=== PATIENT | female | born 1990 | race American Indian/Alaskan Native ===

== ENCOUNTER 2017-07-23 10:51 | Inpatient (IN) | payer MEDICAID ==
[2017-07-23] MEDS ORDERED: Lactated Ringers 1,000 ML IV ONE (11:15)
[2017-07-23] MEDS ORDERED: Citric Acid/Sodium Citrate Solution 30 ML Cup PO ONE (12:00)
[2017-07-23] MEDS ORDERED: Sodium Chloride 0.9% 10 ML Syringe FLUSH PRN (12:00)
[2017-07-23] MEDS ORDERED: Lactated Ringers 1,000 ML IV SCH ×2 (12:00)
[2017-07-23] MEDS ORDERED: ceFAZolin 2 GM in Premix Bag 1 BAG IV ONE (12:00)
[2017-07-23] MEDS ORDERED: Tranexamic Acid 1,000 MG in Sodium Chloride 0.9% 100 ML IV PRN ×2 (12:00→13:38)
[2017-07-23] MEDS ORDERED: Oxytocin/Normal Saline 60 UNIT/1,000 ML BAG ONE (12:13)
[2017-07-23] MEDS ORDERED: Carboprost Tromethamine 250 MCG/1 ML Amp IM ONE (13:38)
[2017-07-23] MEDS ORDERED: Methylergonovine 0.2 MG/1 ML Amp IM PRN (13:38)
[2017-07-23] MEDS ORDERED: Acetaminophen/oxyCODONE 325-5 MG Tab PO PRN (13:38)
[2017-07-23] MEDS ORDERED: Ondansetron 4 MG/2 ML SDV IV PRN (13:38)
[2017-07-23] MEDS ORDERED: Measles, Mumps & Rubella Vaccine 0.5 ML SDV SUBCUT ONE (13:38)
[2017-07-23] MEDS ORDERED: diphenhydrAMINE 50 MG/ML SDV IVPUSH PRN (13:38)
[2017-07-23] MEDS ORDERED: ePHEDrine 50 MG/ML SDV IVPUSH PRN (13:38)
[2017-07-23] MEDS ORDERED: Acetaminophen 325 MG Tab PO PRN (13:38)
[2017-07-23] MEDS ORDERED: Misoprostol 400 MCG (4 X 100 MCG TAB) RECTAL PRN (13:38)
[2017-07-23] MEDS ORDERED: Naloxone 2 MG/2 ML Syringe IVPUSH PRN (13:38)
[2017-07-23] MEDS ORDERED: Oxytocin/Normal Saline 30 UNIT/500 ML BAG IV SCH (14:15)
--- NOTE | 2017-07-23 14:50 | OR ---
DATE: 07/23/2017 PROCEDURE PERFORMED: Repeat low-transverse section with single-layer closure. PREOPERATIVE DIAGNOSES: 1. 39 and 4/7 weeks' intrauterine . 2. 3, para 2-0-0-2. 3. Active labor. 4. Blood type A positive, rubella nonimmune, group B strep positive. 5. History of macrosomic infant. 6. Late care. 7. Thrombocytopenia. 8. Marijuana abuse. 9. Abnormal Pap smear ASCUS with positive HPV. 10.History of x2. POSTOPERATIVE DIAGNOSES: 1. 39 and 4/7 weeks' intrauterine . 2. 3, para 3-0-0-3. 3. Active labor. 4. Blood type A positive, rubella nonimmune, group B strep positive. 5. History of macrosomic . 6. Late care. 7. Thrombocytopenia. 8. Marijuana abuse. 9. Abnormal Pap smear ASCUS with positive HPV. 10.History of x2. 11.Delivery of viable male infant. BRIEF HISTORY: A 26-year-old with the above-listed diagnoses presented to the clinic today with contractions that had been started since last night and were continuing throughout the day. The cervix was examined at the clinic and then rechecked here at the hospital. She was making cervical change as well as having a little bit of bloody show. Decision was made to proceed with elective repeat section due to active labor. CONSENT: Discussed with the patient indications risks, benefits, and alternatives to repeat section including, but not limited to risk of infection, plan for preoperative antibiotics, risk for bleeding to the point of requiring a blood transfusion and its inherent risks. Risk of injury to any internal organs and adjacent structures including, but not limited to, bladder, uterus, fallopian tubes, intestines, large blood vessels, nerves, veins, any adjacent structures, and even potential injury to the baby. Potential for complications, requiring transfer of mother and/or baby to a higher level of care and even remote risk of , she agreed to proceed. Appropriate consent form signed and can be found in the chart. SURGEON: Yolanda Vasquez MD WELL POINT PUMPING SUPERVISOR: Izaiah Page MD SECOND WELL POINT PUMPING SUPERVISOR: Berta Groves MS-III PROCEDURE IN DETAIL: The patient was taken to the operating room and spinal anesthesia obtained. She was laid in dorsal supine position with leftward tilt and Chaudhry indwelling catheter placed. Prepped and draped in normal sterile fashion. Pfannenstiel skin incision made with scalpel and carried down to the underlying fascia with cautery. Fascia incised in the midline and continued dissection with Mattson scissors. Superior fascial edge grasped, tented up, and rectus muscles dissected off bluntly with cautery. Inferior fascial edge was then tented up and rectus muscles dissected off bluntly with cautery. The peritoneal cavity opened with blunt finger dissection and traction. Uterus inspected and Roque retractor placed. Then, bladder flap created with Metzenbaum scissors and smooth pickup in the usual fashion. Low-uterine segment transverse incision made with scalpel and carried down until amniotic fluid sac was seen and not ruptured. Hysterotomy site created with blunt finger traction. Amniotic fluid sac then ruptured with Allis forceps and had copious amounts of clear fluid. Attempted to deliver the baby up through the hysterotomy site and this proved to be quite difficult, so Kiwi vacuum was called for assist and we were able to get the baby delivered. 's mouth and nose were bulb suctioned, baby dried, stimulated, and the three-vessel umbilical cord doubly clamped and cut. Baby taken to the warmer for further evaluation. Placenta delivered by cord traction and concomitant uterine massage and intact. Uterine cavity cleared of all clots and debris. Hysterotomy site closed with a running lock stitch of 0 Vicryl in the usual fashion and was hemostatic. Roque removed and pericolic gutters cleared of all clots and debris. Uterus was inspected and verified. Absence of tube and ovary on the right, tube on the left ovary was not seen. No obvious endometriosis seeding of the peritoneum. Hysterotomy site reinspected and was hemostatic. Peritoneal layer closed with a running stitch of 0 Vicryl. This layer was then irrigated and fascia closed with 0 looped PDS running stitch in the usual fashion. Subcutaneous tissues irrigated, cleared of any clots and debris. Subcutaneous bleeders controlled with cautery and skin closed with carol. The patient tolerated the procedure well, and she will be in the PACU until she can return down to the OB floor. FINDINGS: Viable male infant, weighing 8 pounds 4 ounces, 3735 g, score of 8 and 9, length 19 inches, head 14 inches, chest 13 and 3/4 inches. Based on exam, guessing she is actually closer to 37 to 38 weeks gestational age. COMPLICATIONS: None. ESTIMATED BLOOD LOSS: 650 mL. IV FLUIDS: Crystalloids. URINE OUTPUT: Yellow clear. See Anesthesia notes for exact amounts. [facility] /[id number] MTDD
[2017-07-23] MEDS ORDERED: fentaNYL 100 MCG/2 ML SDV IV ONE (15:44)
[2017-07-23] MEDS ORDERED: Ondansetron 4 MG/2 ML SDV IV ONE (15:44)
[2017-07-23] MEDS ORDERED: Bupivacaine 0.75%/D5W 2 ML Amp ONE (15:44)
[2017-07-23] MEDS ORDERED: Ketorolac 30 MG/ML SDV IVPUSH ONE (15:44)
[2017-07-23] MEDS ORDERED: Dexamethasone 4 MG/ML SDV IV ONE (15:44)
[2017-07-23] MEDS ORDERED: ePHEDrine 50 MG/ML SDV IV ONE (15:44)
[2017-07-23] MEDS ORDERED: Morphine PF 1 MG/ML Amp ONE (15:44)
[2017-07-23] MEDS: Lactated Ringers 1,000 ML IV SCH (16:51)
[2017-07-23] MEDS: Simethicone 80 MG Tab.Chew PO SCH (16:59)
[2017-07-23] MEDS: Docusate Sodium 100 MG Cap PO PRN (16:59)
[2017-07-23] MEDS: Ketorolac 30 MG/ML SDV IVPUSH SCH (19:40)
[2017-07-23] MEDS ORDERED: Promethazine 25 MG/ML SDV IM ONE (20:02)
[2017-07-24] MEDS: Ketorolac 30 MG/ML SDV IVPUSH SCH ×2 (00:54→07:31)
[2017-07-24] MEDS: Lactated Ringers 1,000 ML IV SCH (00:54)
[2017-07-24] MEDS: Simethicone 80 MG Tab.Chew PO SCH ×5 (06:28→21:23)
[2017-07-24] MEDS: Prenatal Multivitamin with Calcium/Folic Acid/Iron Tab PO SCH (11:45)
[2017-07-24] MEDS: Ferrous Sulfate 325 MG Tab PO SCH (11:45)
[2017-07-24] MEDS: Docusate Sodium 100 MG Cap PO PRN ×2 (11:45→21:23)
--- NOTE | 2017-07-24 11:51 | PN ---
DATE: 07/24/2017 SUBJECTIVE: Postoperative day #1, status post elective repeat section due to presenting in labor at term. The patient reports doing well. She has been up and ambulating. Chaudhry catheter has been removed, and she has been voiding without difficulties. No chest pain or shortness of breath. Reports that she is extremely tired this morning, but denies other symptoms or complaints. Nurses are concerned about the amount of strikethrough on the dressing. It has been marked a couple of times and is more than expected. OBJECTIVE: Vital Signs: Temperature is 98.1, pulse 66, blood pressure 118/61, respiratory rate of 18, and O2 saturations 100% on room air. Heart: Regular without obvious murmur. Lungs: Clear to auscultation bilaterally. Abdomen: Soft and mildly distended. Positive bowel sounds that are hypoactive. Pelvic: Uterus is firm and below the umbilicus. Dressing with approximately 75% shadowing noted. Dressing was removed and is not juan f blood. It is actually more serosanguineous drainage. New dry dressing applied. Extremities: No edema, erythema, or tenderness noted. LABORATORY DATA: Hemoglobin is down to 11.7 from a previous 13.2 and platelets are stable at 129 from a previous 131. Urine drug screen reviewed and positive for methamphetamine and marijuana. Confirmatory testing will be pending for a few days. ASSESSMENT: 1. Postoperative day #1, status post elective repeat section. 2. Rubella nonimmune. 3. Thrombocytopenia of and . 4. History of marijuana abuse. 5. Positive drug screen for marijuana and methamphetamine, confirmation pending. 6. Atypical squamous cells of undetermined significance on Pap smear with positive human papillomavirus. PLAN: Continue normal and post cares. Anticipate discharge home on day #3. We will reassess her incision over the lunch hour, and if it looks good, we can have her get up and take a shower and then apply an Aquacel dressing and Steri-Strips if needed as 1 staple did fall out this morning. Anticipate the strikethrough will be minimal, and no interventions needed, but we will proceed cautiously. We will discuss with the patient this afternoon the positive on the methamphetamine drug screen as well, make her aware that Retail Special Event Associate consultation is part of the standard, and if she proves to be negative, then that would be a minimal intervention, and if she proves to be positive and actively using, then we will coordinate with her on followup, treatment, and plan of care. [facility] /[id number]
[2017-07-24] MEDS ORDERED: Oxytocin/Normal Saline 30 UNIT/500 ML BAG IV ONE ×2 (14:49→14:59)
[2017-07-24] MEDS: Ibuprofen 800 MG Tab PO PRN (17:15)
[2017-07-24] MEDS: Acetaminophen/oxyCODONE 325-5 MG Tab PO PRN (21:23)
[2017-07-25] MEDS: Ibuprofen 800 MG Tab PO PRN ×2 (01:22→10:51)
[2017-07-25] MEDS: Acetaminophen/oxyCODONE 325-5 MG Tab PO PRN ×2 (02:19→08:12)
[2017-07-25] MEDS: Ferrous Sulfate 325 MG Tab PO SCH (08:11)
[2017-07-25] MEDS: Prenatal Multivitamin with Calcium/Folic Acid/Iron Tab PO SCH (08:11)
[2017-07-25] MEDS: Simethicone 80 MG Tab.Chew PO SCH (08:12)
[2017-07-25 12:08] VITALS: BP 114/75
--- NOTE | 2017-08-05 00:19 | DISCH ---
ADMITTING DIAGNOSES: 1. A 39 and 4/7 weeks' intrauterine . 2. 3, para 2-0-0-2. 3. Active labor. 4. Blood type A positive, rubella nonimmune, and group B streptococcus negative. 5. History of delivery of macrosomic infants. 6. Late care. 7. Thrombocytopenia. 8. Marijuana abuse. 9. Pap smear abnormal with ASCUS and positive HPV. 10.History of x2. DISCHARGE DIAGNOSES: 1. A 39 and 4/7 weeks' intrauterine . 2. 3, para 3-0-0-3. 3. Active labor. 4. Blood type A positive, rubella nonimmune, and group B streptococcus negative. 5. History of delivery of macrosomic infants. 6. Late care. 7. Thrombocytopenia. 8. Marijuana abuse. 9. Pap smear abnormal with ASCUS and positive HPV. 10.History of x2. 11.Anemia of acute blood loss. 12.False positive methamphetamine positive on drug screen. 13.Status post repeat low transverse section. 14.Delivery of viable male infant. BRIEF HISTORY: The patient is a 26-year-old female with the above-listed diagnoses, who presented to the hospital in active labor and needed elective repeat section. See history and physical for full details. Surgery was carried out without complications. See operative report for further information. HOSPITAL COURSE: Hospital course has been good. The patient has been ambulating and tolerating regular diet. Initially had some problems with some excessive strike through of her dressing, but ultimately that was fine, and she did not have any excessive bleeding. No signs of infection. She is voiding and stooling without difficulties and meeting all of her discharge criteria. DISCHARGE CONDITION: Good. PHYSICAL EXAMINATION: Vital Signs: Temperature 97.8, pulse 68, blood pressure 114/75, respiratory rate of 18, and O2 saturations 100% on room air. Heart: Regular without murmur. Lungs: Clear to auscultation bilaterally with good chest expansion. Abdomen: Soft, nontender. Fundus is firm and below the umbilicus. Aquacel dressing is intact. Extremities: Trace edema. No erythema or tenderness noted. LABORATORY DATA: Discharge hemoglobin 11.7, platelets 129. DISPOSITION: Home with family. MEDICATIONS: 1. Iron 325 mg twice daily. 2. Colace 100 mg twice daily as needed for constipation. 3. Percocet 5/325 one to two tablets every 4 to 6 hours as needed for pain. 4. Ibuprofen 600 mg every 6 hours as needed for pain. FOLLOWUP: She will be seen in the office within the next week for staple removal and postoperative check. She will then be seen again at 6 weeks for routine exam. INSTRUCTIONS: Routine post delivery instructions were provided, and the patient will present back to the hospital if she has any concerns or complaints that arise, specifically if she has any foul-smelling drainage or discharge, increased uterine tenderness, fever, chills, concerns of wound infection, or other issues. Her questions were answered, and she was in agreement with the plan. [facility] /[id number] MTDJil
== END 2017-07-25 11:00 | disposition home or self-care (01) | DRG 765 ==
LOC: DL.OBCHECK 10:51 → DL.OB 12:08 → OBSVTOIN 13:03 → DL.OB 13:03
PROVIDERS: ADMIT Family Medicine; ATTEND Family Medicine
PROC: 10D00Z1 Extraction of Products of Conception, Low, Open Approach (ICD-10-PCS; principal; 2017-07-23)
PROC: 3E0234Z Introduction of Serum, Toxoid and Vaccine into Muscle, Percutaneous Approach (ICD-10-PCS; 2017-07-23)
DX: O34.211 Maternal care for low transverse scar from previous cesarean delivery (principal); O99.12 Other diseases of the blood and blood-forming organs and certain disorders involving the immune mechanism complicating childbirth; O99.324 Drug use complicating childbirth; N85.8 Other specified noninflammatory disorders of uterus; Z3A.39 39 weeks gestation of pregnancy; Z37.0 Single live birth; D69.6 Thrombocytopenia, unspecified; F12.10 Cannabis abuse, uncomplicated; O99.824 Streptococcus B carrier state complicating childbirth; Z28.3 Underimmunization status
CPT/HCPCS: 01961; 36415; 51702; 59409; 80305; 85025; 85027; 86850; 86900; 86901; 90707; 94010; A9270-GY; G0480; J0690; J1100; J1885; J2274; J2405; J2550; J2590; J3010; J3490; J7050; J7120

== ENCOUNTER 2019-01-21 23:43 | Emergency (ER) | payer SELFPAY ==
[2019-01-22 00:22] VITALS: BP 117/69; PULSE 126
[2019-01-22] MEDS ORDERED: Sodium Chloride 0.9% 10 ML Syringe FLUSH PRN (00:28)
--- NOTE | 2019-01-22 01:04 | EDM.PDOC ---
ED HPI GENERAL MEDICAL PROBLEM - General Chief Complaint: Skin Complaint Stated Complaint: R LEG INFECTION Time Seen by Provider: 01/22/19 01:00 Source of Information: Reports: Patient History Limitations: Reports: No Limitations - History of Present Illness INITIAL COMMENTS - FREE TEXT/NARRATIVE: was here yesterday for same but unable to wait and left. returned tonight feeling worse with increase pain. 3 days h/o of problem from possible spider bite. been putting salve on it. 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 History: Reports: Endometriosis, , Other (See Below) Other BUSINESS CONTINUITY SPECIALIST History: right ovarian cyst Musculoskeletal History: Reports: None Neurological History: Reports: None Psychiatric History: Reports: Anxiety Endocrine/Metabolic History: Reports: None Hematologic History: Reports: None Immunologic History: Reports: None Oncologic (Cancer) History: Reports: None Dermatologic History: Reports: None - Infectious Disease History Infectious Disease History: Reports: None - Past Surgical History Head Surgeries/Procedures: Reports: None GI Surgical History: Reports: Appendectomy Female Surgical History: Reports: Section, Cervical Conization Other Female Surgeries/Procedures: c-sec in july 2018 Social & Family History - Family History Family Medical History: Noncontributory - Tobacco Use Smoking Status *Q: Current Every Day Smoker Years of Tobacco use: 7 Packs/Tins Daily: 0.1 Second Hand Smoke Exposure: Yes - Caffeine Use Caffeine Use: Reports: Coffee, Soda, Tea - Recreational Drug Use Recreational Drug Use: No ED ROS GENERAL - Review of Systems Review Of Systems: ROS reveals no pertinent complaints other than HPI. ED EXAM, SKIN/RASH Exam: See Below Exam Limited By: No Limitations General Appearance: Alert, WD/WN, Anxious (tearful), Mild Distress, Other Ears: Hearing Grossly Normal Throat/Mouth: Normal Voice, No Airway Compromise Head: Atraumatic Neck: Non-Tender, Full Range of Motion Respiratory/Chest: No Respiratory Distress Cardiovascular: Regular Rate, Rhythm GI/Abdominal: Soft, Non-Tender Extremities: Other (abscess cellulitis right foster bone, mild lymphangitis, swollen, tender, NV wnl, gait limited to pain) Neurological: Alert, Oriented, Normal Cognition, No Motor/Sensory Deficits Psychiatric: Tearful Skin: Warm, Dry, Normal Color Location, Skin: Lower Extremity, Right Characteristics: Erythematous Associated features: Warmth, Tenderness, Swelling, Lymphangitis, Inflammation, Weeping Course - Vital Signs Last Recorded V/S: Last Vital Signs Temp 37.1 C 01/22/19 00:13 Pulse 126 H 01/22/19 00:13 Resp 18 01/22/19 00:13 BP 117/69 01/22/19 00:13 Pulse Ox 100 01/22/19 00:13 - Orders/Labs/Meds Orders: Active Orders 24 hr Category Date Time Status Peripheral IV Care [RC] . DIRECTED Care 01/22/19 00:28 Active CULTURE BLOOD [BC] Stat Lab 01/22/19 01:30 Received Peripheral IV Insertion Adult [OM.PC] Routine Oth 01/22/19 00:28 Ordered Labs: Laboratory Tests 01/22/19 01/22/19 01/22/19 Range/Units 01:30 01:30 01:30 WBC 13.8 H (5.0-10.0) 10^3/uL RBC 4.50 (4.2-5.4) 10^6/uL Hgb 14.4 (12.0-16.0) g/dL Hct 42.6 (37.0-47.0) % MCV 94.7 (80-100) fL MCH 32.0 (27.0-34.0) pg MCHC 33.8 (33.0-35.0) g/dL Plt Count 226 (150-450) 10^3/uL Neut % (Auto) 72.1 (42.2-75.2) % Lymph % (Auto) 15.5 L (20.5-50.1) % Cla[place]orne % (Auto) 11.7 H (2-8) % Eos % (Auto) 0.6 L (1.0-3.0) % Baso % (Auto) 0.1 (0.0-1.0) % Sodium 137 (135-145) mmol/L Potassium 4.2 (3.6-5.0) mmol/L Chloride 102 (101-111) mmol/L Carbon Dioxide 28.0 (21.0-31.0) mmol/L Anion Gap 11.2 BUN 22 H (7-18) mg/dL Creatinine 1.0 (0.6-1.3) mg/dL Est Cr Clr Drug Dosing 76.71 mL/min Estimated GFR (MDRD) > 60 BUN/Creatinine Ratio 22.00 Glucose 110 H (74-105) mg/dL Lactic Acid 0.8 (0.5-2.2) mmol/L Calcium 8.9 (8.4-10.2) mg/dl Total Bilirubin 0.7 (0.2-1.0) mg/dL AST 15 (10-42) IU/L ALT 15 (10-60) IU/L Alkaline Phosphatase 69 (42-121) IU/L Total Protein 6.8 (6.7-8.2) g/dl Albumin 3.7 (3.2-5.5) g/dl Globulin 3.1 Albumin/Globulin Ratio 1.19 Meds: Medications Discontinued Medications Generic Name Dose Route Start Last Admin Trade Name Freq PRN Reason Stop Dose Admin Clindamycin Phosphate 900 mg/ 106 mls @ 200 mls/hr 01/22/19 01:22 01/22/19 01 :35 Sodium Chloride IV 01/22/19 01:53 200 mls/hr ONETIME ONE Administration Ketorolac Tromethamine 30 mg 01/22/19 01:22 01/22/19 01:33 Toradol IVPUSH 01/22/19 01:23 30 mg ONETIME ONE Administration Sodium Chloride 10 ml 01/22/19 00:28 01/22/19 01:33 Saline Flush FLUSH 10 ml ASDIRECTED PRN Administration Keep Vein Open Departure - Departure Time of Disposition: 02:40 Disposition: Home, Self-Care 01 Condition: Good Clinical Impression: Cellulitis Qualifiers: Site of cellulitis: extremity Site of cellulitis of extremity: lower extremity Laterality: right Qualified Code(s): L03.115 - Cellulitis of right lower limb - Discharge Information Instructions: Cellulitis, Adult, [id number] Referrals: Yolanda Burnett MD [Primary Care Provider] - Forms: ED Department Discharge Additional Instructions: 1) elevate leg as much as possible 2) hot compress to area 3) take tylenol or motrin as needed for pain 4) follow up at clinic rx given; clindamycin 300mg qid x 40 - My Orders Last 24 Hours: My Active Orders 01/22/19 00:28 Peripheral IV Care [RC] . DIRECTED Peripheral IV Insertion Adult [OM.PC] Routine 01/22/19 01:30 CULTURE BLOOD [BC] Stat - Assessment/Plan Last 24 Hours: My Active Orders 01/22/19 00:28 Peripheral IV Care [RC] . DIRECTED Peripheral IV Insertion Adult [OM.PC] Routine 01/22/19 01:30 CULTURE BLOOD [BC] Stat
[2019-01-22] MEDS ORDERED: Ketorolac 30 MG/ML SDV IVPUSH ONE (01:22)
[2019-01-22] MEDS ORDERED: Clindamycin Phosphate 900 MG in Sodium Chloride 0.9% 100 ML IV ONE (01:22)
[2019-01-22 01:56] LABS: ANION GAP 11.2; CHLORIDE,CL 102 mmol/L (101-111); SODIUM,NA 137 mmol/L (135-145)
== END 2019-01-22 02:40 | disposition home or self-care (01) ==
LOC: DL.ED 23:43
DX: L03.115 Cellulitis of right lower limb (principal); F17.210 Nicotine dependence, cigarettes, uncomplicated
CPT/HCPCS: 36415; 80053; 83605; 85025; 87040; 96365; 96375; 99283; J1885; J3490; J7050

== ENCOUNTER 2019-04-19 08:00 | Emergency (ER) | payer OTHER ==
[2019-04-19 08:13] VITALS: BP 126/82; PULSE 88
--- NOTE | 2019-04-19 08:23 | EDM.PDOC ---
ED HPI GENERAL MEDICAL PROBLEM - General Chief Complaint: Upper Extremity Injury/Pain Stated Complaint: SLIPPED ON ICE/HURT LEFT ARM Time Seen by Provider: 04/19/19 08:05 Source of Information: Reports: Patient History Limitations: Reports: No Limitations - History of Present Illness INITIAL COMMENTS - FREE TEXT/NARRATIVE: This 28 yo female patient reports to the ED with left elbow pain due to a fall. The patient reports she was walking down some steps and slipped on the ice. The patient reports increased pain in her left elbow. The patient also has some dried blood on her left middle MCP. The patient reports some numbness distal to her elbow at this time. Onset: Today Duration: Minutes:, Constant Location: Reports: Upper Extremity, Left Quality: Reports: Ache, Sharp, Stabbing Severity: Moderate Improves with: Reports: Rest Worsens with: Reports: Movement Context: Reports: Trauma (Ground level fall) Associated Symptoms: Reports: No Other Symptoms Left Arm Pain Score (Numeric/FACES): 5 - Related Data Allergies Allergy/AdvReac Type Severity Reaction Status Date / Time No Known Allergies Allergy Verified 04/19/19 08:09 Home Meds: Home Meds Ibuprofen [IJD: Ibuprofen] 800 mg PO Q8H PRN 11/20/18 [History] Past Medical History - Past Health History Medical/Surgical History: Denies Medical/Surgical History Other HEENT History: recurrent tonsilis Cardiovascular History: Reports: None Respiratory History: Reports: None Gastrointestinal History: Reports: None Genitourinary History: Reports: None 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 History: Reports: Endometriosis, , Other (See Below) Other 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 History: right ovarian cyst Musculoskeletal History: Reports: None Neurological History: Reports: None Psychiatric History: Reports: Anxiety Endocrine/Metabolic History: Reports: None Hematologic History: Reports: None Immunologic History: Reports: None Oncologic (Cancer) History: Reports: None Dermatologic History: Reports: None - Infectious Disease History Infectious Disease History: Reports: None - Past Surgical History Head Surgeries/Procedures: Reports: None GI Surgical History: Reports: Appendectomy Female Surgical History: Reports: Section, Cervical Conization Other Female Surgeries/Procedures: c-sec in july 2018 Social & Family History - Family History Family Medical History: Noncontributory - Tobacco Use Smoking Status *Q: Current Every Day Smoker Years of Tobacco use: 3 Packs/Tins Daily: 1 - Caffeine Use Caffeine Use: Reports: Coffee, Energy Drinks, Soda, Tea - Recreational Drug Use Recreational Drug Use: No Review of Systems - Review of Systems Review Of Systems: Comprehensive ROS is negative, except as noted in HPI. ED EXAM, GENERAL - Physical Exam Exam: See Below Exam Limited By: No Limitations General Appearance: Alert, WD/WN, Moderate Distress Eye Exam: Bilateral Eye: EOMI, Normal Inspection, PERRL Ears: Normal External Exam, Normal Canal, Hearing Grossly Normal, Normal TMs Nose: Normal Inspection, Normal Mucosa, No Blood Throat/Mouth: Normal Inspection, Normal Lips, Normal Teeth, Normal Gums, Normal Oropharynx, Normal Voice, No Airway Compromise Head: Atraumatic, Normocephalic Neck: Normal Inspection, Supple, Non-Tender, Full Range of Motion Respiratory/Chest: No Respiratory Distress, Lungs Clear, Normal Breath Sounds, No Accessory Muscle Use, Chest Non-Tender Cardiovascular: Normal Peripheral Pulses, Regular Rate, Rhythm, No Edema, No Gallop, No JVD, No Murmur, No Rub GI/Abdominal: Normal Bowel Sounds, Soft, Non-Tender, No Organomegaly, No Distention, No Abnormal Bruit, No Mass (Female) Exam: Deferred Rectal (Female) Exam: Deferred Back Exam: Normal Inspection, Full Range of Motion, NT Extremities: Arm Pain (left elbow pain with swelling to area) Neurological: Alert, Oriented, CN II-XII Intact, Normal Cognition, Normal Gait, Normal Reflexes, No Motor/Sensory Deficits Psychiatric: Normal Affect, Normal Mood Skin Exam: Warm, Dry, Intact, Normal Color, No Rash Lymphatic: No Adenopathy Course - Vital Signs Last Recorded V/S: Last Vital Signs Temp 37.0 C 04/19/19 08:09 Pulse 88 04/19/19 08:09 Resp 16 04/19/19 08:09 BP 126/82 04/19/19 08:09 Pulse Ox 100 04/19/19 08:09 - Orders/Labs/Meds Orders: Active Orders 24 hr Category Date Time Status Elbow Min 3V Lt [CR] Urgent Exams 04/19/19 08:12 Ordered Hand Comp Min 3V Lt [CR] Urgent Exams 04/19/19 08:21 Ordered Departure - Departure Time of Disposition: 08:56 Disposition: Home, Self-Care 01 Condition: Fair Clinical Impression: Left elbow contusion Qualifiers: Encounter type: initial encounter Qualified Code(s): S50.02XA - Contusion of left elbow, initial encounter Contusion of left hand Qualifiers: Encounter type: initial encounter Qualified Code(s): S60.222A - Contusion of left hand, initial encounter Abrasion of left hand Qualifiers: Encounter type: initial encounter Qualified Code(s): S60.512A - Abrasion of left hand, initial encounter - Discharge Information *PRESCRIPTION DRUG MONITORING PROGRAM REVIEWED*: Not Applicable *COPY OF PRESCRIPTION DRUG MONITORING REPORT IN PATIENT LIANNE: Not Applicable Instructions: Elbow Contusion, [id number], Hand Contusion, [id number] Forms: ED Department Discharge Care Plan Goals: The patient was advised of the examination and x-ray results during the visit. The patient was encouraged to rest ice and elevate her left arm. The patient may take Tylenol or ibuprofen as directed for temporary symptom relief. If the patient has any additional symptoms or concerns, the patient should either return to the emergency department or visit her primary care facility. Sepsis Event Note - Evaluation Sepsis Screening Result: No Definite Risk - Focused Exam Vital Signs: Vital Signs Temp Pulse Resp BP Pulse Ox 04/19/19 08:09 37.0 C 88 16 126/82 100 Date Exam was Performed: 04/19/19 Time Exam was Performed: 08:54 - My Orders Last 24 Hours: My Active Orders 04/19/19 08:12 Elbow Min 3V Lt [CR] Urgent 04/19/19 08:21 Hand Comp Min 3V Lt [CR] Urgent - Assessment/Plan Last 24 Hours: My Active Orders 04/19/19 08:12 Elbow Min 3V Lt [CR] Urgent 04/19/19 08:21 Hand Comp Min 3V Lt [CR] Urgent
== END 2019-04-19 09:02 | disposition home or self-care (01) ==
LOC: DL.ED 08:00
DX: S50.02XA Contusion of left elbow, initial encounter (principal); S60.222A Contusion of left hand, initial encounter; F17.210 Nicotine dependence, cigarettes, uncomplicated; Z90.49 Acquired absence of other specified parts of digestive tract; W00.0XXA Fall on same level due to ice and snow, initial encounter
CPT/HCPCS: 73080-LT; 73130-LT; 99283-25

== ENCOUNTER 2021-02-22 14:52 | Inpatient (IN) | payer MEDICAID ==
[2021-02-22] MEDS ORDERED: fentaNYL 100 MCG/2 ML SDV IVPUSH ONE (15:49)
[2021-02-22] MEDS ORDERED: Sodium Chloride 0.9% 10 ML Syringe FLUSH PRN (16:28)
[2021-02-22] MEDS ORDERED: Citric Acid/Sodium Citrate Solution 30 ML Cup PO ONE (16:28)
[2021-02-22] MEDS ORDERED: Oxytocin 10 Units/1 ML SDV IM PRN (16:28)
[2021-02-22] MEDS ORDERED: Methylergonovine 0.2 MG Tab PO PRN (16:28)
[2021-02-22] MEDS ORDERED: Carboprost Tromethamine 250 MCG/1 ML Amp IM PRN (16:28)
[2021-02-22] MEDS ORDERED: Tranexamic Acid 1,000 MG in Sodium Chloride 0.9% 100 ML IV PRN (16:28)
[2021-02-22] MEDS ORDERED: ceFAZolin 2 GM in Premix Bag 1 BAG IV ONE (16:28)
[2021-02-22] MEDS ORDERED: Lactated Ringers 1,000 ML IV SCH (16:30)
[2021-02-22] MEDS ORDERED: Lactated Ringers 1,000 ML IV ONE (16:30)
[2021-02-22] MEDS ORDERED: Oxytocin/Normal Saline 30 UNIT/500 ML BAG IV SCH (16:30)
[2021-02-22] MEDS ORDERED: Acetaminophen 325 MG Tab PO PRN (18:30)
[2021-02-22] MEDS ORDERED: ePHEDrine 50 MG/ML SDV IVPUSH PRN (18:30)
[2021-02-22] MEDS ORDERED: Misoprostol 400 MCG (4 X 100 MCG TAB) RECTAL PRN (18:30)
[2021-02-22] MEDS ORDERED: Ondansetron 4 MG/2 ML SDV IVPUSH PRN (18:30)
[2021-02-22] MEDS ORDERED: Ketorolac 30 MG/ML SDV IVPUSH SCH (18:30)
[2021-02-22] MEDS ORDERED: Naloxone 2 MG/2 ML Syringe IVPUSH PRN (18:30)
[2021-02-22] MEDS ORDERED: Methylergonovine 0.2 MG/1 ML Amp IM PRN (18:30)
[2021-02-22] MEDS ORDERED: Acetaminophen/oxyCODONE 325-5 MG Tab PO PRN (18:30)
[2021-02-22] MEDS ORDERED: diphenhydrAMINE 50 MG/ML SDV IVPUSH PRN (18:30)
--- NOTE | 2021-02-22 18:33 | PCM.PRNOTE ---
- Free Text/Narrative Note: Section Operative Report Date of Surgery: 02/22/2021 Surgeon: Anne Jones MD Code Official: MD Dr. Berta Cancino, PGY3 Alanis Wen, MS3 Pre-Operative Diagnosis: at 37w6d History of section x3 Limited care Post-Operative Diagnosis: Same Procedure Performed: Repeat low transverse section Anesthesia: Spinal EBL: 450 mL IVF: 1500 mL Drains: Chaudhry catheter with 250 mL of urine output Specimens: Umbilical cord for CordStat testing Complications: None apparent Findings: Normal uterus, tubes, and ovaries. Indication and Consent: The patient presented to floor today in active labor. She was to present tomorrow for scheduled at term due to hx of prior and desire for elective repeat . Therefore, decision was made to proceed with urgent section. The patient understood that the risks of section include, but are not limited to, visceral or vascular injury, infection, blood loss and need for blood transfusion, prolonged hospitalization, and reoperation. The patient again stated understanding and desired to proceed. All questions were answered. Procedure in Detail: The patient was taken to the operating room where spinal anesthesia was placed and found to be adequate. 2 grams of cefazolin (Ancef) were given for infection prophylaxis. She was then prepped and draped in routine fashion in dorsal supine position with a left lopez tilt. Chaudhry catheter and pneumoboots were placed. A Pfannenstiel skin incision was made with a scalpel. The incision was carried down to the fascia sharply. The fascia was incised and extended laterally. The superior aspect of the fascia was grasped with Pete clamps; the underlying rectus muscle and pyramidalis was dissected off with sharp and blunt technique. In a similar fashion, the inferior aspect of the fascia was elevated with Pete clamps and the rectus muscle was dissected off. Hemostasis was achieved with the Bovie. The rectus musculature was in the midline down to the level of the pubic symphysis. Pre-peritoneal fatty tissue was bluntly dissected to expose the peritoneum. The peritoneum was found to be free of adherent bowel or bladder tissue and entered bluntly. The peritoneal opening was then extended superiorly and inferiorly to the bladder reflection with good visualization of the bladder. The Roque retractor was inserted. Intraabdominal survey revealed scant, clear peritoneal fluid and thinned-out lower uterine segment. The vesicouterine peritoneum was opened with a pickup and mets, and the bladder flap was developed. The lower uterine segment was incised with a scalpel. The amniotic sac was ruptured with an Allis clamp and clear fluid was noted. The uterine inc ision was extended bluntly with lateral and upward traction. The fetus was in cephalic position. The head was elevated out of the maternal pelvis with special attention paid to avoid using the uterine incision as a fulcrum. A vacuum was applied to assist with delivery. Gentle fundal pressure was applied once the head was brought into the incision. The infant was delivered with minimal difficulty. Bulb suctioning of the infant's nose and mouth was performed on the operative field. Cord blood was collected.The cord was clamped and cut in standard fashion, and the infant was handed over to the awaiting nursery staff. IV oxytocin was initiated to facilitate uterine contractions. The placenta was delivered intact with manual message of the uterine fundus along with gentle cord traction. The inside of the uterus was gently wiped with a lap sponge to assure complete removal of remaining products of conception. The uterine incision was closed with 0 -Vicryl suture in a running locked fashion. A figure of 8 stitch was placed along the right edge of the incision and Bovie was used to achieve hemostasis. The incision was inspected and hemostasis was achieved. The ovaries and tubes were visualized and found to be normal. The uterus, tubes, and ovaries were returned to the abdominal cavity. The blood clots and fluid were wiped out of the abdomen and pelvis with moist laparotomy sponges. The uterine incision was re-inspected along with all other incised surfaces and good hemostasis was confirmed. The Roque retractor was removed. The fascia was then closed with 2-0 looped PDS suture with care not to include any underlying abdominal contents. The skin was closed with 4-0 Monocryl suture on a Giles needle in a subcuticular fashion. Sponge and instrument counts were reported as correct times two. Patient tolerated procedure well and was taken to PACU in stable condition. Anne Jones MD
--- NOTE | 2021-02-22 21:56 | HP ---
CHIEF COMPLAINT: Increased contractions. HISTORY OF PRESENT ILLNESS: A 30-year-old G4, P3-0-0-3, female at 37 weeks 6 days, confirmed by 28-week ultrasound, came in to clinic for preop appointment with C- section scheduled for tomorrow, 02/23/2021. At her appointment, she was complaining of constant painful contractions starting around midday yesterday. She also complained of minimal leakage of fluid and could barely walk due to the pain. She was taken to OB triage where tocometer showed contractions every 4 to 6 minutes and cervical exam revealed a 3 cm dilated cervix. She was then admitted for an urgent C- section. She denies any bleeding, right upper quadrant pain, visual changes, headaches, fever, chills, or dysuria. OB HISTORY: The patient has had minimal care with initial OB visit in December that showed ABO A-. RPR, hepatitis B surface antigen, hepatitis C and HIV negative. She is rubella immune and GBS negative. Tox screen was positive for THC with history of marijuana use in . Also has had 2 UTIs with culture showing growth of Klebsiella, treated with cefpodoxime, and prophylactically with ceftriaxone and azithromycin. She also has history of chlamydia in third trimester, treated again with azithromycin and ceftriaxone. She has history of 3 previous sections. First one 01/07/2011 at 38 weeks 3 days gestation, 9 pounds via for cephalopelvic disproportion. Second 01/06/2013, 39 weeks 0 days gestation, 8 pounds and third on 07/23/2017 at 39 weeks 4 gestation, 8 pounds 6.8 ounces. No complications noted. PAST MEDICAL HISTORY: Significant for anxiety, endometriosis, marijuana use, and anxiety. SURGICAL HISTORY: Three C-sections noted above, appendectomy in 2015, and right salpingo-oophorectomy in 2015. FAMILY HISTORY: Negative for defects, bleeding disorders, clotting disorders or anesthesia problems. Positive for paternal grandfather with lung cancer, maternal aunt with diabetes, maternal uncle with diabetes, and cousin with multiple births. SOCIAL HISTORY: The patient currently lives in [place] with her 3 children, her dad, and her dad's girlfriend. REVIEW OF SYSTEMS: Negative except for what is noted in the HPI. MEDICATIONS: vitamin, ferrous sulfate 325 mg, famotidine 20 mg, and p.r.n. Tylenol. ALLERGIES: No known drug allergies. OBJECTIVE: Vitals: Temp 99.0 F, HR 101, RR 20, BP 160/96 General: Very distressed patient, crying on hospital bed. HEENT: Grossly unremarkable. Heart: Regular rate and rhythm without murmur. Lungs: Clear to auscultation bilaterally with good chest expansion. Abdomen: Gravid, soft, nontender. Extremities: Edema of feet. No erythema or tenderness noted. Skin: No rashes, lesions or jaundice. Neurological: Appropriate without deficits. Cervical exam, 3 cm dilated. [place] showed contractions every 4 to 6 minutes. heart rate of 150 bpm category 1 with accelerations. ASSESSMENT: 1. 37 and 6 week intrauterine based on 28-week ultrasound. 2. G4, P3-0-0-3. 3. Late care. 4. History of 2 urinary tract infections of third trimester. 5. History of chlamydia infection affecting third trimester. 6. History of 3 sections. 7. History of macrosomic . PLAN: Due to patient's planned tomorrow and presence of contractions with cervical dilation, is planned for 5 p.m. today. CBC and RPR will be collected. Patient was seen by myself and Dr. Jones. Assessment and plan are under advisement of Dr. Jones. [facility] /[id number] Patient was personally seen and examined with the medical student. I reviewed the noted scribed on my behalf and necessary changes have been made to reflect my opinion on the history, exam, assessment, and plan. Anne Jones MD [facility]
[2021-02-22] MEDS: Simethicone 80 MG Tab.Chew PO SCH (23:15)
[2021-02-23] MEDS: Ketorolac 30 MG/ML SDV IVPUSH SCH ×3 (00:49→12:59)
[2021-02-23] MEDS: Lactated Ringers 1,000 ML IV SCH ×2 (00:53→10:07)
[2021-02-23] MEDS: Prenatal Multivitamin with Calcium/Folic Acid/Iron Tab PO SCH (09:00)
[2021-02-23] MEDS: Simethicone 80 MG Tab.Chew PO SCH ×4 (09:00→21:11)
[2021-02-23] MEDS ORDERED: hydrOXYzine HCl 25 MG Tab PO ONE (09:41)
[2021-02-23] MEDS ORDERED: Ketorolac 30 MG/ML SDV IVPUSH ONE (13:00)
[2021-02-23] MEDS ORDERED: Oxytocin/Normal Saline 30 UNIT/500 ML BAG IV ONE (13:40)
--- NOTE | 2021-02-23 14:47 | PN ---
DATE: 02/23/2021 POST OPERATIVE DAY #1 for repeat low transverse section SUBJECTIVE: No acute events overnight. The patient denies any preeclampsia signs or symptoms including right upper quadrant pain, visual changes, headaches, or swelling of feet. She still has indwelling Chaudhry catheter and has not gotten out of bed since her last night at 5:42 p.m. She has minimal pain except in her hands with a little bit of swelling and complaints of hand numbness. She has only had minimal vaginal bleeding. She still is on maintenance fluids but ate and drank well last night. Output from Chaudhry catheter has been adequate. No current concerns for infection, preeclampsia, or complication. OBJECTIVE: Vitals: 97.9 Fahrenheit, heart rate 72, blood pressure 120/89, respiratory rate 20, oxygen 97% on room air. HEENT: Unremarkable. Chest: Regular rate and rhythm. No murmurs, rubs, or gallops. Respiratory: Clear to auscultation bilaterally. Good chest expansion. Abdomen: Soft, nontender. Umbilical hernia noted. Firm uterus at umbilicus. Extremities: Mild swelling of hands and feet. No erythema or tenderness noted. Skin: No jaundice, cyanosis, or clubbing noted. LABORATORY DATA: Pre-admission hemoglobin 11.3, today 11.8. White blood cell count 7.4. MEDICATIONS: Currently has not received her prescribed simethicone, Toradol, or vitamin. ASSESSMENT: 1. Status post repeat low-transverse at 37-6/7 weeks gestation. 2. G4, now P4-0-0-4. 3. Late care. 4. History of chlamydia affecting third trimester of . 5. History of 2 urinary tract infections affecting third trimester of . PLAN: Anticipate normal care. Work on increasing fluid intake and stopping maintenance fluids. Additional goals are to remove Chaudhry, get out of bed to ambulate and urinate independently. Tentative discharge plans for tomorrow home with baby. The patient was seen by myself and Dr. Jones. Assessment and plan under advisement of Dr. Jones. [facility] /[id number] Patient was personally seen and examined with the medical student. I reviewed the noted scribed on my behalf and necessary changes have been made to reflect my opinion on the history, exam, assessment, and plan. Anne Jones MD [facility]
[2021-02-23] MEDS: Acetaminophen/oxyCODONE 325-5 MG Tab PO PRN ×2 (17:44→22:31)
[2021-02-23] MEDS: Docusate Sodium 100 MG Cap PO PRN (21:11)
[2021-02-23] MEDS: hydrOXYzine HCl 25 MG Tab PO PRN (21:11)
[2021-02-23] MEDS: Ibuprofen 800 MG Tab PO PRN (21:11)
[2021-02-24] MEDS: Acetaminophen/oxyCODONE 325-5 MG Tab PO PRN ×2 (04:33→09:42)
[2021-02-24] MEDS: Ibuprofen 800 MG Tab PO PRN (04:33)
[2021-02-24] MEDS: hydrOXYzine HCl 25 MG Tab PO PRN (04:37)
[2021-02-24] MEDS: Simethicone 80 MG Tab.Chew PO SCH (09:41)
[2021-02-24] MEDS: Prenatal Multivitamin with Calcium/Folic Acid/Iron Tab PO SCH (09:44)
[2021-02-24] MEDS: Docusate Sodium 100 MG Cap PO PRN (09:44)
[2021-02-24 10:48] VITALS: BP 129/81; PULSE 82
--- NOTE | 2021-02-24 12:08 | DISCH ---
ADMITTING DIAGNOSES: 1. 37-6/7 week gestation intrauterine based on 28-week ultrasound. 2. G4, P3-0-0-3. 3. Late care. 4. History of 2 urinary tract infections of third trimester. 5. History of chlamydia infection affecting third trimester. 6. History of 3 sections. 7. History of macrosomal . DISCHARGE DIAGNOSES: 1. 37-6/7 week intrauterine , delivered, status post repeat low transverse section with vacuum assist under intrathecal anesthesia. 2. G4, now P4-0-0-4. 3. Late care. 4. History of 2 urinary tract infections of third trimester. 5. History of chlamydia infection affecting third trimester. 6. History of 3 sections. 7. History of macrosomal . PROCEDURE PERFORMED: Repeat low transverse section with vacuum assist under spinal anesthesia. BRIEF HISTORY: A 30-year-old female with above-listed diagnoses presented to the clinic for preop appointment for scheduled the following day. At appointment, she was fina and had cervical change. She then was admitted for urgent . She gave to a baby boy, score 8 and 9, weight 3010 g at 1742. HOSPITAL COURSE: Has been okay. The patient has had minimal bleeding. Has been tolerating P.O. and passing gas. Patient has ambulated minimally with encouragement and has complained of numbness and tingling in her hands that since has improved with hydroxyzine. Pain has been under control with scheduled Motrin and Percocet. No signs or symptoms or infection, hemorrhage, or other complications. No preeclamptic symptoms, chest pain, or shortness of breath. DISCHARGE CONDITION: Good. PHYSICAL EXAMINATION: Vital Signs: Temp of 97.9, heart rate 62, respiratory rate 16, blood pressure 124/76. Abdomen: Soft, nontender. Fundus is firm below umbilicus. Extremities: No edema, erythema, or tenderness noted. LABORATORY DATA: Admission hemoglobin 11.3 and platelets 177. Discharge hemoglobin 11.8 and platelets 161. DISPOSITION: Home. MEDICATIONS: [id number] Tylenol and ibuprofen and prescribed Percocet as needed for pain. Continue vitamin once daily. FOLLOWUP: Will be seen in clinic in 6 weeks for examination and additionally next Friday, 02/27, for first exam. INSTRUCTIONS: Routine post via repeat low transverse instructions to mother were provided and all questions answered. The patient was seen by myself and Dr. Jones. Assessment and plan are under advisement of Dr. Jones. [facility] /[id number] Patient was personally seen and examined with the medical student. I reviewed the noted scribed on my behalf and necessary changes have been made to reflect my opinion on the history, exam, assessment, and plan. Anne Jones MD [facility]
== END 2021-02-24 13:50 | disposition home or self-care (01) | DRG 788 ==
LOC: DL.OBCHECK 14:52 → DL.MS 16:50 → UNDOADMIN 16:50
PROVIDERS: ADMIT Family Medicine; ATTEND Family Medicine
PROC: 10D00Z1 Extraction of Products of Conception, Low, Open Approach (ICD-10-PCS; principal; 2021-02-22)
DX: O34.211 Maternal care for low transverse scar from previous cesarean delivery (principal); Z37.0 Single live birth; Z3A.37 37 weeks gestation of pregnancy; R20.0 Anesthesia of skin; R20.2 Paresthesia of skin; O99.892 Other specified diseases and conditions complicating childbirth; Z20.822 Contact with and (suspected) exposure to COVID-19
CPT/HCPCS: 01961; 36415; 85027; 86592; 86850; 86900; 86901; A9270-GY; J0690; J1885; J2590; J3010; J7120; U0002

== ENCOUNTER 2021-09-08 14:56 | Emergency (ER) | payer MEDICAID ==
[2021-09-08 15:30] VITALS: BP 132/71; PULSE 121
[2021-09-08] MEDS ORDERED: Lactated Ringers 1,000 ML IV ONE (17:09)
[2021-09-08] MEDS ORDERED: HYDROmorphone 1 MG/ML Syringe IVPUSH ONE (17:09)
[2021-09-08] MEDS ORDERED: Ondansetron 4 MG/2 ML SDV IVPUSH ONE (17:09)
[2021-09-08 17:11] LABS: ANION GAP 14.7 mEq/L (7-13); CHLORIDE,CL 102 mmol/L (98-107); SODIUM,NA 140 mmol/L (136-145)
== END 2021-09-08 19:53 | disposition home or self-care (01) ==
LOC: DL.ED 14:56
DX: L03.114 Cellulitis of left upper limb (principal); F17.210 Nicotine dependence, cigarettes, uncomplicated
CPT/HCPCS: 36415; 80053; 83605; 85025; 86140; 87040; 96365; 96375; 99283; J1170; J2405; J3370; J7050; J7120

== ENCOUNTER 2021-09-09 19:47 | Inpatient (IN) | payer MEDICAID ==
[2021-09-09] MEDS ORDERED: Ibuprofen 400 MG Tab PO PRN (20:22)
[2021-09-09] MEDS ORDERED: Docusate Sodium 100 MG Cap PO PRN (20:22)
[2021-09-09] MEDS ORDERED: Ondansetron 4 MG/2 ML SDV IVPUSH PRN (20:22)
[2021-09-09] MEDS ORDERED: Sodium Chloride 0.9% 10 ML Syringe FLUSH PRN (20:22)
[2021-09-09] MEDS ORDERED: Acetaminophen 325 MG Tab PO PRN (20:22)
[2021-09-09] MEDS: Acetaminophen/HYDROcodone 325-5 MG Tab PO PRN (23:39)
[2021-09-10] MEDS: Sodium Chloride 0.9% 10 ML Syringe FLUSH SCH ×3 (01:38→22:28)
[2021-09-10 07:15] LABS: ANION GAP 11.9 mEq/L (7-13); CHLORIDE,CL 106 mmol/L (98-107); SODIUM,NA 140 mmol/L (136-145)
[2021-09-10] MEDS: Enoxaparin 40 MG/0.4 ML Syringe SUBCUT SCH (10:25)
[2021-09-10 15:08] LABS: BARBITURATES,URINE NEGATIVE (NEGATIVE); BENZODIAZEPINE,URINE NEGATIVE (NEGATIVE); MDMA (ECSTASY), URINE NEGATIVE (NEGATIVE); METHADONE,URINE NEGATIVE (NEGATIVE); METHAMPHETAMINES,URINE POSITIVE (NEGATIVE); OPIATES,URINE POSITIVE (NEGATIVE); TCA,URINE NEGATIVE (NEGATIVE)
[2021-09-10 15:09] LABS: AMPHETAMINES,URINE NEGATIVE (NEGATIVE); OXYCODONE,URINE NEGATIVE (NEGATIVE); PHENCYCLIDINE,URINE NEGATIVE (NEGATIVE)
[2021-09-10] MEDS: Acetaminophen/HYDROcodone 325-5 MG Tab PO PRN ×2 (18:03→22:27)
[2021-09-11 07:02] LABS: ANION GAP 13.8 mEq/L (7-13); CHLORIDE,CL 106 mmol/L (98-107); SODIUM,NA 141 mmol/L (136-145)
[2021-09-11] MEDS: Enoxaparin 40 MG/0.4 ML Syringe SUBCUT SCH (09:04)
[2021-09-11] MEDS: Sodium Chloride 0.9% 10 ML Syringe FLUSH SCH (09:05)
[2021-09-11 13:20] VITALS: BP 112/68; PULSE 71
== END 2021-09-11 13:14 | disposition home or self-care (01) | DRG 603 ==
LOC: DL.MS 19:54
PROVIDERS: ADMIT Internal Medicine; ATTEND Internal Medicine
DX: L03.114 Cellulitis of left upper limb (principal); Z87.440 Personal history of urinary (tract) infections; F41.9 Anxiety disorder, unspecified; Z90.49 Acquired absence of other specified parts of digestive tract; Z86.19 Personal history of other infectious and parasitic diseases
CPT/HCPCS: 36415; 80048; 80202; 80305-QW; 81025; 85025; 86140; A9270-GY; J3370; J3490; J7050

== ENCOUNTER 2022-04-02 15:12 | Emergency (ER) | payer MEDICAID, OTHER | END 2022-04-02 16:29 | disposition left against medical advice (07) | LOC: DL.ED 15:12 | DX: Z53.21 Procedure and treatment not carried out due to patient leaving prior to being seen by health care provider (principal) ==

== ENCOUNTER 2022-04-18 18:11 | Emergency (ER) | payer MEDICAID, OTHER ==
[2022-04-18 19:04] VITALS: BP 125/79; PULSE 76
== END 2022-04-18 19:09 | disposition home or self-care (01) ==
LOC: DL.ED 18:11
DX: Z34.01 Encounter for supervision of normal first pregnancy, first trimester (principal)
CPT/HCPCS: 36415; 81025; 84702; 99283

== ENCOUNTER 2022-11-17 01:04 | Emergency (ER) | payer MEDICAID ==
[2022-11-17] MEDS ORDERED: Dexamethasone 4 MG/ML SDV IVPUSH ONE (01:09)
[2022-11-17] MEDS: Sodium Chloride 0.9% 10 ML Syringe FLUSH PRN (01:10)
[2022-11-17] MEDS: EPINEPHrine 1 MG/ML SDV SUBCUT ONE (01:13)
[2022-11-17] MEDS: diphenhydrAMINE 50 MG/ML SDV IVPUSH ONE (01:13)
[2022-11-17 03:56] VITALS: BP 131/88; PULSE 115
[2022-11-17] MEDS ORDERED: diphenhydrAMINE 50 MG/ML SDV ONE (04:03)
[2022-11-17] MEDS ORDERED: EPINEPHrine 1 MG/ML SDV ONE (04:03)
== END 2022-11-17 02:44 | disposition home or self-care (01) ==
LOC: DL.ED 01:04
DX: T78.2XXA Anaphylactic shock, unspecified, initial encounter (principal)
CPT/HCPCS: 96372; 96374; 99284; J0171; J1200; J3490

== ENCOUNTER 2024-08-18 13:32 | Emergency (ER) | payer MEDICAID, OTHER ==
[~2024-08-18 13:32] MED LIST: Haloperidol Lactate 5 MG/ML SDV IV ONE; Haloperidol Lactate 5 MG/ML SDV ONE; LORazepam 2 MG/ML SDV IV ONE; LORazepam 2 MG/ML SDV ONE; diphenhydrAMINE 50 MG/ML SDV IV ONE; diphenhydrAMINE 50 MG/ML SDV ONE
[2024-08-18] MEDS ORDERED: Haloperidol Lactate 5 MG/ML SDV IVPUSH ONE (13:37)
[2024-08-18] MEDS ORDERED: diphenhydrAMINE 50 MG/ML SDV IVPUSH ONE (13:37)
[2024-08-18] MEDS ORDERED: LORazepam 2 MG/ML SDV IVPUSH ONE (13:37)
[2024-08-18] MEDS ORDERED: Sodium Chloride 0.9% 10 ML Syringe FLUSH PRN (13:39)
[2024-08-18] MEDS: Iopamidol 612 MG/ML 100 ML Bottle IVPUSH ONE (13:39)
[2024-08-18 13:50] LABS: BASOPHILS PERCENT AUTO 0.1 % (0.0-1.0); HEMOGLOBIN 13.6 g/dL (12.0-16.0); LYMPHOCYTES PERCENT AUTO 19.8 % (20.5-50.1); MEAN CORPUSCULAR HEMOGLOBIN 31.9 pg (27.0-34.0); MEAN CORPUSCULAR VOLUME 93.9 fL (80-100); MONOCYTES PERCENT AUTO 9.6 % (2-8); NEUTROPHILS PERCENT AUTO 69.5 % (42.2-75.2); PLATELET COUNT,PLT 218 10^3/uL (150-450); RED BLOOD CELL COUNT 4.26 10^6/uL (4.2-5.4); WHITE BLOOD CELL COUNT,WBC 8.4 10^3/uL (5.0-10.0)
[2024-08-18 14:00] LABS: APPEARANCE,URINE CLEAR (CLEAR); BILIRUBIN,URINE NEGATIVE (NEGATIVE); COLOR,URINE YELLOW (YELLOW); GLUCOSE,URINE NEGATIVE (NEGATIVE); KETONES,URINE NEGATIVE (NEGATIVE); LEUKOCYTE ESTERASE,URINE NEGATIVE (NEGATIVE); NITRITE,URINE NEGATIVE (NEGATIVE); OCCULT BLOOD,URINE NEGATIVE (NEGATIVE); PROTEIN,URINE 30 (NEGATIVE)
[2024-08-18 14:01] LABS: AMPHETAMINES,URINE POSITIVE (NEGATIVE); BARBITURATES,URINE NEGATIVE (NEGATIVE); BENZODIAZEPINE,URINE NEGATIVE (NEGATIVE); MDMA (ECSTASY), URINE POSITIVE (NEGATIVE); METHADONE,URINE NEGATIVE (NEGATIVE); METHAMPHETAMINES,URINE POSITIVE (NEGATIVE); OPIATES,URINE NEGATIVE (NEGATIVE); OXYCODONE,URINE NEGATIVE (NEGATIVE); PHENCYCLIDINE,URINE NEGATIVE (NEGATIVE); TCA,URINE NEGATIVE (NEGATIVE)
[2024-08-18] MEDS: Iopamidol 755 Mg/ML 100 ML Bottle IVPUSH ONE (14:05)
[2024-08-18 14:12] LABS: BACTERIA,URINE RARE /HPF (0-FEW/HPF); EPITHELIAL CELLS,URINE FEW /HPF (NOT SEEN); MUCUS,URINE FEW /LPF (NOT SEEN); RBC,URINE 0-5 /HPF (0-5); WBC,URINE 0-5 /HPF (0-5/HPF)
[2024-08-18 14:12] LABS: INR 0.9 (0.9-1.2); PROTHROMBIN TIME 9.9 SEC (9.0-12.0); PTT,PARTIAL THROMBOPLSTIN TIME 28.5 SEC (22.0-34.0)
[2024-08-18 14:13] LABS: A/G RATIO 1.2; ALANINE AMINOTRANSFERASE,ALT 27 U/L (14-59); ALBUMIN 3.6 g/dL (3.4-5.0); ALKALINE PHOSPHATASE 69 U/L (46-116); ANION GAP 15.6 mEq/L (7-13); ASPARTATE AMNIOTRANSFERASE,AST 19 U/L (15-37); BILIRUBIN TOTAL 0.5 mg/dL (0.2-1.0); BLOOD UREA NITROGEN,BUN 22 mg/dL (7-18); BUN/CREATININE RATIO 22.9 (No establ ref range); CALCIUM 8.5 mg/dL (8.5-10.1); CARBON DIOXIDE,CO2 25 mmol/L (21-32); CHLORIDE,CL 106 mmol/L (98-107); CREATININE 0.96 mg/dL (0.55-1.02); EST CRCL DRUG DOSING (CG) 73.32 mL/min; GLUCOSE RANDOM 156 mg/dL (70-99); MAGNESIUM 1.8 mg/dL (1.8-2.4); POTASSIUM,K 3.6 mmol/L (3.5-5.1); PROTEIN TOTAL,TP 6.7 g/dL (6.4-8.2); SODIUM,NA 143 mmol/L (136-145)
[2024-08-18 14:14] LABS: ESTIMATED GFR 81 mL/min (>=60); ETHANOL BLOOD MEDICAL < 3 mg/dL (0)
[2024-08-18] MEDS ORDERED: Sodium Chloride 0.9% 1,000 ML IV ONE (14:21)
[2024-08-18] MEDS ORDERED: LORazepam 2 MG/ML SDV IV ONE (14:31)
[2024-08-18] MEDS ORDERED: LORazepam 2 MG/ML SDV ONE (14:31)
[2024-08-18] MEDS ORDERED: Lidocaine/EPINEPHrine/Tetracaine Soln 5 ML Each TOP ONE (16:01)
== END 2024-08-18 22:49 | disposition home or self-care (01) ==
LOC: DL.ED 13:32
DX: S01.511A Laceration without foreign body of lip, initial encounter (principal); F12.920 Cannabis use, unspecified with intoxication, uncomplicated; F15.129 Other stimulant abuse with intoxication, unspecified; Z91.030 Bee allergy status; Z79.899 Other long term (current) drug therapy; V89.2XXA Person injured in unspecified motor-vehicle accident, traffic, initial encounter
CPT/HCPCS: 12011; 36415; 51702; 70450; 72125; 73090; 73100; 73120; 74177; 80053; 80305; 80307; 81001; 81025; 83735; 84484; 85025; 85610; 85730; 93005; 93010; 96361; 96374; 96375; 96376; 99284; 99285; C1758; J1200; J1630; J2060; Q9967

== ENCOUNTER 2024-10-16 21:20 | Emergency (ER) | payer MEDICAID ==
[2024-10-16] MEDS: Dexamethasone 4 MG/ML SDV IVPUSH ONE (21:46)
[2024-10-16 21:58] VITALS: BP 111/78; PULSE 85
== END 2024-10-16 21:57 | disposition home or self-care (01) ==
LOC: DL.ED 21:20
DX: T78.2XXA Anaphylactic shock, unspecified, initial encounter (principal); Z91.030 Bee allergy status; Z90.49 Acquired absence of other specified parts of digestive tract
CPT/HCPCS: 96374; 99285; J1100

== ENCOUNTER 2024-11-21 17:37 | Emergency (ER) | payer MEDICAID ==
[2024-11-21 17:57] VITALS: BP 138/79; PULSE 97
[2024-11-21] MEDS: Take Home: Amoxicillin 500 MG, 6 Cap Pack PO ONE (18:15)
== END 2024-11-21 18:18 | disposition home or self-care (01) ==
LOC: DL.ED 17:37
DX: J02.9 Acute pharyngitis, unspecified (principal); F17.200 Nicotine dependence, unspecified, uncomplicated; Z90.49 Acquired absence of other specified parts of digestive tract; Z91.013 Allergy to seafood
CPT/HCPCS: 99283; A9270; 99282